=== PATIENT | male | born 1990 | race African-American/Black ===

== ENCOUNTER 2022-05-18 12:59 | Emergency (ER) | payer SELFPAY ==
--- NOTE | 2022-05-18 14:17 | EDPHYS ---
Physician Documentation [facility] Name: Marcos Zacarias Age: 31 yrs Sex: Male : 1990 Arrival Date: 05/18/2022 Time: 13:01 Bed Waiting Private MD: ED Physician Alfa Olvera HPI: 05/18 13:44 This 31 yrs old Black Male presents to ER via Ambulatory with complaints of r/o covid. kb 13:44 The patient or guardian reports cough, that is intermittent, described as mild, flu kb symptoms, myalgias. Onset: The symptoms/episode began/occurred yesterday. Severity of symptoms: At their worst the symptoms were moderate, in the emergency department the symptoms are unchanged. Modifying factors: The symptoms are alleviated by nothing, the symptoms are aggravated by nothing. Associated signs and symptoms: The patient has no apparent associated signs or symptoms. The patient has not experienced similar symptoms in the past. The patient has not recently seen a physician. Historical: - Allergies: 13:13 No Known Allergies; ap3 - Home Meds: 13:13 None [Active]; ap3 - PMHx: 13:13 Anxiety; Depression; ap3 - Immunization history:: Client reports receiving the 2nd dose of the Covid vaccine. - Social history:: Smoking status: Patient reports the use of cigarette tobacco products, smokes one-half pack cigarettes per day, Patient uses street drugs, marijuana. ROS: 13:43 Abdomen/GI: Negative for abdominal pain, nausea, vomiting, diarrhea, and constipation. kb 13:43 Constitutional: Positive for body aches, chills, fatigue, malaise. 13:43 Respiratory: Positive for cough, Negative for dyspnea on exertion, hemoptysis, orthopnea, pleurisy, shortness of breath, sputum production, wheezing. 13:43 Neuro: Positive for headache. 13:43 All other systems are negative. Exam: 13:43 Constitutional: This is a well developed, well nourished patient who is awake, alert, kb and in no acute distress. Head/Face: Normocephalic, atraumatic. ENT: Moist Mucous membranes Cardiovascular: Regular rate and rhythm with a normal S1 and S2. No gallops, murmurs, or rubs. No pulse deficits. Respiratory: Respirations even and unlabored. No increased work of breathing. Talking in full sentences Skin: Warm, dry with normal turgor. Normal color. MS/ Extremity: Pulses equal, no cyanosis. Neurovascular intact. Full, normal range of motion. Neuro: Awake and alert, GCS 15, oriented to person, place, time, and situation. Moves all extremities. Normal gait. Psych: Awake, alert, with orientation to person, place and time. Behavior, mood, and affect are within normal limits. Vital Signs: 13:11 BP 136 / 71; Pulse 61; Temp 98.8; Pulse Ox 100% ; Weight 95.25 kg; Height 6 ft. 2 in. ap3 (187.96 cm); 13:11 Body Mass Index 26.96 (95.25 kg, 187.96 cm) ap3 MDM: 13:11 Patient medically screened. kb 13:44 Data reviewed: vital signs, nurses notes. Data interpreted: Pulse oximetry: on room air kb is 100 %. Interpretation: normal. 14:16 Counseling: I had a detailed discussion with the patient and/or guardian regarding: the kb historical points, exam findings, and any diagnostic results supporting the discharge/admit diagnosis, lab results, the need for outpatient follow up, a family practitioner, to return to the emergency department if symptoms worsen or persist or if there are any questions or concerns that arise at home. 05/18 13:14 Order name: COVID-19 SARS RT PCR (Document "Date of Onset" if Symptomatic); Complete kb Time: 14:16 05/18 13:14 Order name: Flu; Complete Time: 14:07 kb Administered Medications: No medications were administered Disposition Summary: 05/18/22 14:17 Discharge Ordered Location: Home kb Condition: Stable kb Diagnosis - Coronavirus infection, unspecified kb Followup: kb - With: Emergency Department - When: As needed - Reason: Worsening of condition Followup: kb - With: Private Physician - When: 2 - 3 days - Reason: Recheck today's complaints, Continuance of care, Re-evaluation by your physician Discharge Instructions: - Discharge Summary Sheet kb - Viral Respiratory Infection, [id number] kb - COVID-19 kb Forms: - Medication Reconciliation Form kb - Thank You Letter kb - Antibiotic Education kb - Prescription Opioid Use kb Signatures: Dispatcher [employer] EDJacki Dominguez FNP-C FNP-[place]ara [place], RN RN ap3
--- NOTE | 2022-05-18 14:17 | ER ---
Nurse's Notes [facility] Name: Marcos Zacarias Age: 31 yrs Sex: Male : 1990 Arrival Date: 05/18/2022 Time: 13:01 Bed Waiting Private MD: Diagnosis: Coronavirus infection, unspecified Presentation: 05/18 13:11 Chief complaint: Patient states: he has been having fever, chills, cough, body aches, ap3 headache since yesterday. Patient denies being in contact with anyone who is COVID positive. Coronavirus screen: Client presents with at least one sign or symptom that may indicate coronavirus-19. Ebola Screen: No symptoms or risks identified at this time. Initial Sepsis Screen: Does the patient meet any 2 criteria? No. Patient's initial sepsis screen is negative. Does the patient have a suspected source of infection? No. Patient's initial sepsis screen is negative. Risk Assessment: Do you want to hurt yourself or someone else? Patient reports no desire to harm self or others. Onset of symptoms was May 17, 2022. 13:11 Method Of Arrival: Ambulatory ap3 13:11 Acuity: SHERIF 4 ap3 Triage Assessment: 13:14 General: Appears uncomfortable, Behavior is cooperative. Pain: Complains of pain in ap3 generalized body aches. Neuro: Level of Consciousness is awake, alert, obeys commands, Oriented to person, place, time, situation, Appropriate for age. Cardiovascular: Patient's skin is warm and dry. Respiratory: Reports cough that is dry, Airway is patent Respiratory effort is even, unlabored, Respiratory pattern is regular, symmetrical. Historical: - Allergies: 13:13 No Known Allergies; ap3 - Home Meds: 13:13 None [Active]; ap3 - PMHx: 13:13 Anxiety; Depression; ap3 - Immunization history:: Client reports receiving the 2nd dose of the Covid vaccine. - Social history:: Smoking status: Patient reports the use of cigarette tobacco products, smokes one-half pack cigarettes per day, Patient uses street drugs, marijuana. Screenin:14 Abuse screen: Denies threats or abuse. Nutritional screening: No deficits noted. ap3 Tuberculosis screening: No symptoms or risk factors identified. Fall Risk None identified. Vital Signs: 13:11 BP 136 / 71; Pulse 61; Temp 98.8; Pulse Ox 100% ; Weight 95.25 kg; Height 6 ft. 2 in. ap3 (187.96 cm); 13:11 Body Mass Index 26.96 (95.25 kg, 187.96 cm) ap3 ED Course: 13:01 Patient arrived in ED. as 13:06 Jacki Bryan FNP-C is [facility]. kb 13:06 Alfa Olvera MD is Attending Physician. kb 13:13 Triage completed. ap3 13:14 Arm band placed on right wrist. ap3 13:15 Patient has correct armband on for positive identification. Pulse ox on. NIBP on. ap3 Administered Medications: No medications were administered Medication: 13:15 VIS not applicable for this client. ap3 Outcome: 14:17 Discharge ordered by . kb 14:21 Patient left the ED. kb Signatures: Jacki Bryan FNP-C FNP-Ckb Martinez, Amelia as Prokisch, Amanda, RN RN ap3
[2022-05-18 15:00] VITALS: BP 136/71; TEMP 98.8; O2SAT 100
== END 2022-05-18 14:21 | disposition home or self-care (01) ==
LOC: ER 12:59
DX: U07.1 COVID-19 (principal); F17.210 Nicotine dependence, cigarettes, uncomplicated
CPT/HCPCS: 87804; U0003

== ENCOUNTER 2022-05-24 16:59 | Emergency (ER) | payer SELFPAY ==
--- NOTE | 2022-05-24 18:41 | ER ---
Nurse's Notes [facility] Name: Marcos Zacarias Age: 31 yrs Sex: Male : 1990 Arrival Date: 05/24/2022 Time: 17:00 Bed Waiting Private MD: Diagnosis: Presentation: 05/24 17:33 Chief complaint: Patient states: COVID exposure. Cough, fever, body aches. Coronavirus ld1 screen: Client presents with at least one sign or symptom that may indicate coronavirus-19. Standard/surgical mask placed on the client. Ebola Screen: No symptoms or risks identified at this time. Initial Sepsis Screen: Does the patient meet any 2 criteria? No. Patient's initial sepsis screen is negative. Does the patient have a suspected source of infection? No. Patient's initial sepsis screen is negative. Risk Assessment: Do you want to hurt yourself or someone else? Patient reports no desire to harm self or others. Onset of symptoms was May 24, 2022 at 17:34. 17:33 Method Of Arrival: Ambulatory ld1 17:33 Acuity: SHERIF 4 ld1 Triage Assessment: 17:34 General: Appears in no apparent distress. comfortable, Behavior is calm, cooperative, ld1 appropriate for age. Pain: Denies pain. EENT: No signs and/or symptoms were reported regarding the EENT system. Neuro: Level of Consciousness is awake, alert, obeys commands, Oriented to person, place, time, situation. Cardiovascular: Capillary refill < 3 seconds Patient's skin is warm and dry. Respiratory: Airway is patent Respiratory effort is even, unlabored. Historical: - Allergies: 17:34 No Known Allergies; ld1 - PMHx: 17:34 Anxiety; Depression; ld1 - PSHx: 17:34 None; ld1 - Immunization history:: Adult Immunizations up to date, Client reports receiving the 2nd dose of the Covid vaccine. - Social history:: Smoking status: Patient reports the use of cigarette tobacco products, smokes one-half pack cigarettes per day, Patient/guardian denies using alcohol. Vital Signs: 17:33 BP 121 / 63; Pulse 60; Resp 18; Temp 98.5(TE); Pulse Ox 100% on R/A; Weight 95.25 kg; ld1 Height 6 ft. 2 in. (187.96 cm); Pain 0/10; 17:33 Body Mass Index 26.96 (95.25 kg, 187.96 cm) ld1 ED Course: 17:00 Patient arrived in ED. rg4 17:03 Alfa Torre PA is PHCP. anita 17:03 Hernan Hooper DO is Attending Physician. cp 17:33 COVID-19 SARS RT PCR (Document "Date of Onset" if Symptomatic) Sent. ld1 17:34 Triage completed. ld1 17:34 Arm band placed on right wrist. ld1 17:39 COVID-19 SARS RT PCR (Document "Date of Onset" if Symptomatic) Sent. ld1 Administered Medications: No medications were administered Outcome: 18:40 Patient left the ED. ld1 Signatures: Alfa Torre PA PA cp Garcia, Rubi rg4 Angelia Fournier, RN RN ld1
[2022-05-24 19:06] VITALS: BP 121/63; TEMP 98.5; O2SAT 100
--- NOTE | 2022-05-26 20:11 | EDPHYS ---
Physician Documentation [facility] Name: Marcos Zacarias Age: 31 yrs Sex: Male : 1990 Arrival Date: 05/24/2022 Time: 17:00 Bed Waiting Private MD: ED Physician Hernan Hooper Historical: - Allergies: 05/24 17:34 No Known Allergies; ld1 - PMHx: 17:34 Anxiety; Depression; ld1 - PSHx: 17:34 None; ld1 - Immunization history:: Adult Immunizations up to date, Client reports receiving the 2nd dose of the Covid vaccine. - Social history:: Smoking status: Patient reports the use of cigarette tobacco products, smokes one-half pack cigarettes per day, Patient/guardian denies using alcohol. Vital Signs: 17:33 BP 121 / 63; Pulse 60; Resp 18; Temp 98.5(TE); Pulse Ox 100% on R/A; Weight 95.25 kg; ld1 Height 6 ft. 2 in. (187.96 cm); Pain 0/10; 17:33 Body Mass Index 26.96 (95.25 kg, 187.96 cm) ld1 MDM: 18:35 ED course: Patient left ED prior to discharge by provider. anita 05/24 17:30 Order name: COVID-19 SARS RT PCR (Document "Date of Onset" if Symptomatic) ld1 Administered Medications: No medications were administered Disposition Summary: 05/24/22 18:40 Eloped Disposition: post triage evaluation and consult ld1 Reason: unknown ld1 Addendum: 05/26/2022 20:10 Addendum: . Co-signature as Attending Physician, Hernan Hooper DO I was immediately m s3 available on-site in the Emergency Department for consultation in the care of the patient.. Signatures: Dispatcher [employer] EDMS Alfa Torre PA PA cp Sims, Marcus, DO DO ms3 Angelia Fournier RN RN ld1
== END 2022-05-24 18:40 | disposition left against medical advice (07) ==
LOC: ER 16:59
DX: Z53.21 Procedure and treatment not carried out due to patient leaving prior to being seen by health care provider (principal)
CPT/HCPCS: U0003